=== PATIENT | female | born 1935 | race Caucasian/White ===

== ENCOUNTER → 2019-04-24 | Outpatient (CLI) | payer MEDICARE, BC ==
[~2019-04-24] MED LIST: ASPI81CH PO; Aciphex20 MG; B Complex #11 EACH; CALCAVITDA; CHOL10002; CYCL0.05OP; DABI150C PO; FLUSAL1005; GLUCHON PO; Hair, Skin & N1 EACH PO; LOSA50 PO; MATZIM LA180 MG PO; MOMENI; NITR.4SL; PROP120ER PO; TIOT18; TRAZ50 PO; VENL150ER PO; XARELTO20 MG; oxygen
[2019-04-28 17:07] LABS: DOPAMINE, URINE 76 ug/L (Undefined)
[2019-04-28 22:06] LABS: METANEPHRINE, UR 32 ug/L (Undefined)
[2019-04-29 11:07] LABS: 5-HIAA, URINE 1.9 mg/L (Undefined); CREATININE, URINE 46.7 mg/dL (Not Estab.)
== END | disposition home or self-care (01) ==
LOC: LAB 09:24 → LAB SHORT 09:24
PROVIDERS: Internal Medicine
DX: R23.2 Flushing (principal); R61 Generalized hyperhidrosis
CPT/HCPCS: 81050; 82384; 82570; 83497; 83835

== ENCOUNTER 2020-11-29 05:33 | Emergency (ER) | payer MEDICARE, BC ==
[~2020-11-29] VITALS: Ht 167.6 cm; Wt 77.1 kg
[2020-11-29 06:09] LABS: BASOPHILS ABSOLUTE AUTO 0.07 K/mm3 (0.00-0.23); BASOPHILS PERCENT AUTO 1 % (0-2); EOSINOPHILS ABSOLUTE AUTO 0.04 K/mm3 (0.00-0.68); EOSINOPHILS PERCENT AUTO 1 % (0-6); Hematocrit 37.3 % (33.0-51.0); Hemoglobin 12.5 g/dL (11.5-16.0); IMMATURE GRAN ABSOLUTE AUTO 0.02 K/mm3 (0.00-0.10); IMMATURE GRAN PERCENT AUTO 0 % (0-1); LYMPHOCYTES ABSOLUTE AUTO 1.45 K/mm3 (0.84-5.20); LYMPHOCYTES PERCENT AUTO 17 % (21-46); MONOCYTES ABSOLUTE AUTO 0.66 K/mm3 (0.16-1.47); MONOCYTES PERCENT AUTO 8 % (4-13); Mean Corpuscular HGB 30.8 pg (26.0-34.0); Mean Corpuscular HGB Conc 33.5 g/dL (31.5-36.5); Mean Corpuscular Volume 92 fL (80-100); Mean Platelet Volume 10.3 fL (9.1-12.4); NEUTROPHILS ABSOLUTE AUTO 6.22 K/mm3 (1.96-9.15); NEUTROPHILS PERCENT AUTO 74 % (41-73); Platelet Count 153 K/mm3 (150-400); RDW Coefficient Variation 12.3 % (11.7-14.2); RDW Standard Deviation 41.9 fL (35.1-46.3); Red Blood Cell Count 4.06 M/mm3 (3.80-5.20); White Blood Cell Count 8.46 K/mm3 (4.00-11.30)
[2020-11-29 06:28] LABS: Alanine Aminotransfer (ALT/SGP 18 U/L (12-78); Albumin, Blood 3.6 g/dL (3.4-5.0); Albumin/Globulin Ratio 1.1 (0.8-1.8); Alk Phos 64 U/L (50-136); Anion Gap 6 mmol/L (6-16); Aspartate Aminotrans (AST/SGOT 21 U/L (12-37); Bilirubin, Total 0.9 mg/dL (0.1-1.0); Blood Urea Nitrogen 13 mg/dL (8-24); Bun/Creatinine Ratio 17.4 (12.0-20.0); CO2, Blood 28 mmol/L (21-32); Calcium, Blood 8.7 mg/dL (8.5-10.1); Chloride, Blood 107 mmol/L (98-108); Creatinine, Blood 0.75 mg/dL (0.40-1.00); Globulin, Blood 3.4 g/dL (2.2-4.0); Glomerular Filtration Rate >60 (60-); Glucose, Blood 80 mg/dL (70-99); Potassium, Blood 3.7 mmol/L (3.5-5.5); Sodium, Blood 141 mmol/L (136-145)
[2020-11-29 07:06] LABS: CPK Creatine Kinase 398 U/L (26-193); Creatine Kinase MB 3.3 ng/mL (0.0-3.6); Creatine Kinase MB Index 0.8 (0.0-4.0)
== END 2020-11-29 08:52 | disposition home or self-care (01) ==
LOC: ER 05:33
PROVIDERS: Emergency Medicine
DX: S09.90XA Unspecified injury of head, initial encounter (principal); S70.02XA Contusion of left hip, initial encounter; Z79.899 Other long term (current) drug therapy; W18.30XA Fall on same level, unspecified, initial encounter
CPT/HCPCS: 36415; 51701; 70450; 73502; 80053; 82550; 82553; 85025; 93005; 93010; 99284-25; A9270

== ENCOUNTER 2021-10-19 09:39 | Day surgery (SDC) | payer MEDICARE, BC ==
[~2021-10-19] VITALS: Ht 167.6 cm; Wt 63.8 kg
[~2021-10-19 09:39] MED LIST changes: +Effexor Xr150 MG PO; +FLUT1DIS2 INH; +NASONEX17 GM; +PRAV20 PO; +RABE20 PO; +Restasis1 EACH BOTHEYES; +TIOT18 INH; +XARELTO20 MG PO
--- NOTE | 2021-10-19 11:03 | NUR ---
10/19/21 1103 Collette Seay FIRST ATTEMPT MISSED BY SHAYNE IN THE RIGHT HAND. SECOND ATTEMPT SUCCESFUL BY RN IN THE RIGHT HAND.
== END 2021-10-19 12:02 | disposition home or self-care (01) ==
LOC: ORSCSDS 09:39
PROVIDERS: Internal Medicine Gastroenterology
PROC: 0DBM8ZX Excision of Descending Colon, Via Natural or Artificial Opening Endoscopic, Diagnostic (ICD-10-PCS; principal; 2021-10-19 11:00)
DX: Z12.11 Encounter for screening for malignant neoplasm of colon (principal); Z86.010 Personal history of colon polyps; K57.30 Diverticulosis of large intestine without perforation or abscess without bleeding; K63.5 Polyp of colon; I10 Essential (primary) hypertension; F03.90 Unspecified dementia, unspecified severity, without behavioral disturbance, psychotic disturbance, mood disturbance, and anxiety; I48.0 Paroxysmal atrial fibrillation; J44.9 Chronic obstructive pulmonary disease, unspecified; K21.9 Gastro-esophageal reflux disease without esophagitis; Z87.891 Personal history of nicotine dependence; Z79.01 Long term (current) use of anticoagulants; Z79.899 Other long term (current) drug therapy
CPT/HCPCS: 88305; J2704; J7120

== ENCOUNTER 2024-11-30 13:07 | Observation (INO) | payer MEDICARE, BC ==
[~2024-11-30] VITALS: Ht 162.6 cm; Wt 59.4 kg
[~2024-11-30 13:07] MED LIST changes: +ALBU2.5V5 INH; +Acetaminophen325 M1 PO; +Acetaminophen650 M1; +ENOX40I SC; +LOSA25 PO; +OMEP20ER PO; +VENL75ER PO
[2024-11-30] MEDS ORDERED: Seroquel Xr50 MG PO (13:28)
[2024-11-30 13:51] LABS: BASOPHILS ABSOLUTE AUTO 0.08 K/mm3 (0.00-0.23); BASOPHILS PERCENT AUTO 1 % (0-2); EOSINOPHILS ABSOLUTE AUTO 0.02 K/mm3 (0.00-0.68); EOSINOPHILS PERCENT AUTO 0 % (0-6); Hematocrit 34.1 % (33.0-51.0); Hemoglobin 11.3 g/dL (11.5-16.0); IMMATURE GRAN ABSOLUTE AUTO 0.02 K/mm3 (0.00-0.10); IMMATURE GRAN PERCENT AUTO 0 % (0-1); LYMPHOCYTES ABSOLUTE AUTO 1.23 K/mm3 (0.84-5.20); LYMPHOCYTES PERCENT AUTO 15 % (21-46); MONOCYTES ABSOLUTE AUTO 0.69 K/mm3 (0.16-1.47); MONOCYTES PERCENT AUTO 8 % (4-13); Mean Corpuscular HGB 31.2 pg (26.0-34.0); Mean Corpuscular HGB Conc 33.1 g/dL (31.5-36.5); Mean Corpuscular Volume 94 fL (80-100); Mean Platelet Volume 10.9 fL (9.1-12.4); NEUTROPHILS ABSOLUTE AUTO 6.24 K/mm3 (1.96-9.15); NEUTROPHILS PERCENT AUTO 75 % (41-73); Platelet Count 167 K/mm3 (150-400); RDW Coefficient Variation 14.2 % (11.7-14.2); RDW Standard Deviation 49.3 fL (35.1-46.3); Red Blood Cell Count 3.62 M/mm3 (3.80-5.20); White Blood Cell Count 8.28 K/mm3 (4.00-11.30)
[2024-11-30] MEDS ORDERED: Diltiazem HCl 5 MG / ML 5ML Vial IV ONE ×2 (14:25→15:55)
[2024-11-30 14:27] LABS: Albumin, Blood 3.6 g/dL (3.4-5.0); Albumin/Globulin Ratio 1.1 (0.8-1.8); Bilirubin, Total 1.1 mg/dL (0.1-1.0); Bun/Creatinine Ratio 37.8 (12.0-20.0); Calcium, Blood 8.6 mg/dL (8.5-10.1); Creatinine, Blood 0.79 mg/dL (0.40-1.00); Globulin, Blood 3.3 g/dL (2.2-4.0); Potassium, Blood 3.5 mmol/L (3.5-5.5); Total Protein, Blood 6.9 g/dL (6.4-8.2)
[2024-11-30] MEDS ORDERED: dilTIAZem HCL 125 MG in Dextrose 5% 100 ML IV SCH (17:45)
[2024-11-30] MEDS ORDERED: Metoprolol Tartrate 1 MG/ML 5 ML VIAL IV ONE ×2 (17:55→18:00)
[2024-11-30] MEDS ORDERED: Ondansetron HCl 2 MG / ML 2ML Vial IV PRN (18:05)
[2024-11-30] MEDS ORDERED: Magnesium Sulf 2 GM/Water 50ML 50 ML IV STA (18:26)
[2024-11-30 18:53] VITALS: BP 123/79
[2024-11-30] MEDS ORDERED: Potassium Chloride 20 MEQ/15 ML UDC PO ONE (19:00)
--- NOTE | 2024-11-30 20:53 | NUR ---
UPON MEETING THE PATIENT SHE WAS PLEASANTLY CONFUSED AND COOPERATIVE WITH CARE WHEN EXPLAINED WHAT THE PURPOSE OF IT WAS. AROUND 1999 THIS RN WAS BRINGING HER MEDICATIONSAND THE PATIENT WAS TRYING TO GET OUT OF BED, AGITATED, STATING THAT SHE WAS REFUSING TO BE HAULED DOWN THE FREEWAY ON AN OPEN FLAT BED. SHE DID NOT BELIEVE THAT SHE IS IN THE HOSPITAL, NOR THAT SHE WAS SITTING ON A BED. PATIENT CALLING STAFF CROOKS AND LIARS AND SWEARING. PATIENT TRIED WALKING OUT OF THE ROOM TO LEAVE. BODY DIE MAKER NOTIFIED, NURSING DOG BARBER NOTIFIED. PATIENT SWEARING AT STAFF. TAKING OFF TELEMETRY AND REFUSING CARE. SHE ALSO THREW HER DIRTY ATTENDS IN THIS RN'S FACE.
[2024-11-30] MEDS ORDERED: QUEtiapine Fumarate 50 MG TAB PO SCH (21:00)
--- NOTE | 2024-11-30 23:45 | NUR ---
PATIENT CONTINUES TO REFUSE ALL MEDICAL INTERVENTION INCLUDING VITALS, TELE, AND MEDICATIONS. DR MISHRA AWARE.
[2024-12-01 02:59] VITALS: BP 116/80
[2024-12-01 04:00] LABS: BASOPHILS ABSOLUTE AUTO 0.07 K/mm3 (0.00-0.23); BASOPHILS PERCENT AUTO 1 % (0-2); EOSINOPHILS ABSOLUTE AUTO 0.01 K/mm3 (0.00-0.68); EOSINOPHILS PERCENT AUTO 0 % (0-6); Hematocrit 36.6 % (33.0-51.0); IMMATURE GRAN ABSOLUTE AUTO 0.03 K/mm3 (0.00-0.10); IMMATURE GRAN PERCENT AUTO 0 % (0-1); LYMPHOCYTES ABSOLUTE AUTO 1.07 K/mm3 (0.84-5.20); LYMPHOCYTES PERCENT AUTO 14 % (21-46); MONOCYTES ABSOLUTE AUTO 0.68 K/mm3 (0.16-1.47); MONOCYTES PERCENT AUTO 9 % (4-13); Mean Corpuscular HGB 31.3 pg (26.0-34.0); Mean Corpuscular HGB Conc 32.8 g/dL (31.5-36.5); Mean Corpuscular Volume 96 fL (80-100); Mean Platelet Volume 11.9 fL (9.1-12.4); NEUTROPHILS PERCENT AUTO 76 % (41-73); Platelet Count 174 K/mm3 (150-400); RDW Coefficient Variation 14.3 % (11.7-14.2); RDW Standard Deviation 49.7 fL (35.1-46.3); Red Blood Cell Count 3.83 M/mm3 (3.80-5.20); White Blood Cell Count 7.86 K/mm3 (4.00-11.30)
[2024-12-01 04:17] LABS: Albumin, Blood 3.5 g/dL (3.4-5.0); Bilirubin, Total 1.3 mg/dL (0.1-1.0); Bun/Creatinine Ratio 41.7 (12.0-20.0); Calcium, Blood 8.7 mg/dL (8.5-10.1); Creatinine, Blood 0.79 mg/dL (0.40-1.00); Globulin, Blood 3.6 g/dL (2.2-4.0); Magnesium, Blood 2.1 mg/dL (1.6-2.4); Potassium, Blood 3.5 mmol/L (3.5-5.5); Total Protein, Blood 7.1 g/dL (6.4-8.2)
[2024-12-01] MEDS ORDERED: Omeprazole 20 MG CapCR PO SCH (06:00)
--- NOTE | 2024-12-01 06:28 | NUR ---
SHIFT SUMMARY PATIENT CONTINUES TO BE CONFUSED, HOWEVER, AFTER SLEEPING FOR A WHILE SHE WOKE UP AND WAS PLEASANT AGAIN, ALLOWED FOR AM VITALS AND LABS, BUT STILL REFUSING MEDS AND TELE. WILL CONTINUE TO MONITOR.
[2024-12-01 07:40] VITALS: BP 123/82
--- NOTE | 2024-12-01 07:44 | NUR ---
NURSING PCU DAYSHIFT: Assumed care of pt at approx 0700. Alert, sitting in chair, engaging in conversation with sitter at bedside. Confused, able to recall some family history but unable to remember how many children she has had or year of . Mistrusting of participating in some aspects of assessments though is pleasant with general conversation. Skin fragile w/no noted breakdown, BLE dusky and cool though cap refill <3 sec. Ambulates w/SBA for safety. Tele place, afib w/HR 100-120, SBP 120's prior to a.m. meds, no c/o CP/pressure, no noted edema, pedal pulses faint. L/S cta t/o, O2 sat 100% on RA, denies dyspnea, no noted cough. Abd SNT, BT+, voiding w/o difficulty per rpt. PIV x1, s/l. No s/s of acute distress this a.m. Pt remains calm w/sitter in room. Will attempt PO meds after PMD rounds as pt will not tolerate diltiazem infusion for rate control at this time. Cont to monitor for changes.
[2024-12-01] MEDS ORDERED: Metoprolol Tartrate 5 ML IV ONE (08:33)
[2024-12-01] MEDS ORDERED: Metoprolol Tartrate 1 MG/ML 5 ML VIAL IV STA (08:39)
[2024-12-01] MEDS ORDERED: Aspirin 81 MG Chew PO SCH (09:00)
[2024-12-01] MEDS ORDERED: Metoprolol Tartrate 1 MG/ML 5 ML VIAL IV PRN (09:00)
[2024-12-01] MEDS ORDERED: Pravastatin Sodium 20 MG Tab PO SCH (09:00)
[2024-12-01] MEDS ORDERED: Enoxaparin 40 MG/0.4 ML SYR SC SCH (09:00)
[2024-12-01] MEDS ORDERED: Metoprolol Tartrate 25 MG Tab PO SCH ×2 (09:00)
--- NOTE | 2024-12-01 10:43 | NUR ---
PT DOES NOT HAVE A POLST ON FILE ([facility]). SPOKE WITH [employer] THIS MORN[facility]. [facility] REPORTS PT IS A FULL CODE. CANCELED DUPLICATE PALLIATIVE CARE ORDERS.
[2024-12-01 11:49] VITALS: BP 93/68
[2024-12-01 13:50] VITALS: BP 107/73
[2024-12-01] MEDS ORDERED: Furosemide 20 MG Tab PO SCH (15:00)
--- NOTE | 2024-12-01 15:18 | NUR ---
SPOLE WITH DAUGHTER ADAMA ON THE PHONE. WE DISCUSSED CODE STATUS. REVIEWED OPTION ON POLST SHE CHOSE DNR AND COMFORT MEASURES. WE DISCUSSED DISCHARGE PLAN. WE DISCUSSED HOSPICE AND THEY WOULD PROVIDE. SHE IS AGREEABLE TO THIS PLAN. UPDATED PROVIDER. CODE STATUS CHANGED DISCUSSED WITH BEDSIDE RN AND CHANGE MANAGEMENT FACILITATOR.
[2024-12-01] MEDS ORDERED: Losartan Potassium 50 MG Tab PO SCH (16:45)
[2024-12-01] MEDS ORDERED: Empagliflozin 10 MG TAB PO SCH (17:00)
--- NOTE | 2024-12-01 17:33 | NUR ---
NURSING PCU DAYSHIFT SUMMARY: This a.m. while pt was sitting on toilet, HR increased to 140-170's, pt became pale, dizzy, and nauseous. 5 mg IV metoprolol administered as per d/o, converted to NSR w/HR 60-70s, symptoms improved. ECHO results received and reviewed, discussed w/PMD, new d/o received. Physician notified that as of 1744, pt has had no urine output. PO lasix administered at 1617, have not been able to complete bladder scan. Pt has had significant fluctuations in behavior t/o shift. At times, pt is cooperative and agreeable w/care though can quickly experience changes in behavior including anger, paranoia, and visual hallucinations. During those episodes, pt was not able to be directed at which time staff would switch out and pt would settle after period of time. When pt insisted on leaving room, staff took pt for walks t/o unit in w/c, some of which pt enjoyed, other times pt yelled out and cussed asked for public relations officer to be called. Care management and palliative care have worked w/daughter and facility to discuss care and discharge plan. Decision made to discharge pt home on hospice 12/02, daughter to provide transport at 1100, hospice intake scheduled for 1200. Pt sleeping for the first time this shift. Appears to be resting comfortably. Sitter remains at bedside for safety. Cont to monitor until rpt is given to NOC RN.
[2024-12-01] MEDS ORDERED: Rivaroxaban 10 MG Tab PO SCH (18:00)
--- NOTE | 2024-12-01 18:07 | NUR ---
NURSING PCU DAYSHIFT SUMMARY: This a.m. while pt was sitting on toilet, HR increased to 140-170's, pt became pale, dizzy, and nauseous. 5 mg IV metoprolol administered as per d/o, converted to NSR w/HR 60-70s, symptoms improved. ECHO results received and reviewed, discussed w/PMD, new d/o received. Physician notified that as of 1744, pt has had no urine output. PO lasix administered at 1617, have not been able to complete bladder scan. Pt has had significant fluctuations in behavior t/o shift. At times, pt is cooperative and agreeable w/care though can quickly experience changes in behavior including anger, paranoia, and visual hallucinations. During those episodes, pt was not able to be directed at which time staff would switch out and pt would settle after period of time. When pt insisted on leaving room, staff took pt for walks t/o unit in w/c, some of which pt enjoyed, other times pt yelled out and cussed asked for deli worker to be called. Care management and palliative care have worked w/daughter and facility to discuss care and discharge plan. Decision made to discharge pt home on hospice 12/02, daughter to provide transport at 1100, hospice intake scheduled for 1200. Pt sleeping for the first time this shift. Appears to be resting comfortably. Sitter remains at bedside for safety. Cont to monitor until rpt is given to NOC RN.
[2024-12-01 19:35] VITALS: BP 138/81
[2024-12-02 02:51] VITALS: BP 112/90
--- NOTE | 2024-12-02 06:28 | NUR ---
SHIFT SUMMARY PATIENT ALERT AND ORIENTED TO SELF AND FAMILY. HAD NO COMPLAINTS OF PAIN. OCCASIONALLY WOKE UP SHORT OF BREATH AND SAT UP TO RECOVER, SPO2 >90% DURING THESE EPISODES ON ROOM AIR. MIDNIGHT VITAL SIGNS NOT OBTAINED FOR PATIENT'S COMFORT AND TO NOT AGITATE THE PATIENT SHE WAS SLEEPING. EVENING AND MORNING VITALS STABLE. WILL CONTINUE TO MONITOR. CALL LIGHT WITHIN REACH. SITTER AT BEDSIDE.
[2024-12-02 06:49] LABS: Bun/Creatinine Ratio 39.7 (12.0-20.0); Calcium, Blood 8.6 mg/dL (8.5-10.1); Creatinine, Blood 0.93 mg/dL (0.40-1.00); Potassium, Blood 3.7 mmol/L (3.5-5.5)
[2024-12-02 08:54] VITALS: BP 125/101
[2024-12-02] MEDS ORDERED: Metoprolol Succinate 25 MG TABCR PO SCH (09:00)
--- NOTE | 2024-12-02 09:57 | NUR ---
AM ASSESSMENT: Pt sitting up at edge of bed eating breakfast with SOLICITING FREIGHT AGENT at bedside. Pt is confused to place, situation, time. Oriented only to self. Happy and cooperative most of the time. Follows most instructions with some convincing. LS clear. HR irregular. BT positive. Pulses palp. Plan to discharge today with hospice. Will continue to monitor. Bed alarm on, call light in reach.
[2024-12-02] MEDS ORDERED: LOSA25 PO (10:01)
[2024-12-02] MEDS ORDERED: FURO20 PO (10:01)
[2024-12-02] MEDS ORDERED: JARDIANCE10 MG PO (10:01)
[2024-12-02] MEDS ORDERED: XARELTO20 MG PO (10:02)
[2024-12-02] MEDS ORDERED: METO25ER PO (10:02)
[2024-12-02 11:10] VITALS: BP 135/117
--- NOTE | 2024-12-02 11:11 | NUR ---
DISCHARGE: Pt and daughter were given dishcarge instructions. Verbalized understanding, denies questions. Left via wc. Stable at time of dishcarge with hospice.
[2024-12-02] MEDS ORDERED: Losartan Potassium 50 MG Tab PO SCH (21:00)
== END 2024-12-02 11:15 | disposition hospice, home (50) ==
LOC: ER 13:07 → PCU 13:08
PROVIDERS: Emergency Medicine; Internal Medicine; Nurse Practitioner Acute Care; ADMIT Internal Medicine
DX: I48.19 Other persistent atrial fibrillation (principal); I11.0 Hypertensive heart disease with heart failure; I50.21 Acute systolic (congestive) heart failure; F03.90 Unspecified dementia, unspecified severity, without behavioral disturbance, psychotic disturbance, mood disturbance, and anxiety; R74.01 Elevation of levels of liver transaminase levels; E78.5 Hyperlipidemia, unspecified; K21.9 Gastro-esophageal reflux disease without esophagitis; Z51.5 Encounter for palliative care; Z88.2 Allergy status to sulfonamides; Z79.82 Long term (current) use of aspirin; Z79.899 Other long term (current) drug therapy
CPT/HCPCS: 36415; 71046; 80048; 80053; 83735; 83880; 84443; 84484; 85025; 93005; 93010; 96372; 96374; 96375; 96376; 99285-25; A9270; C8929; G0378; J1650; Q9957

== ENCOUNTER 2024-12-26 07:54 | Emergency (ER) | payer MEDICARE, BC ==
[~2024-12-26] VITALS: Ht 162.6 cm; Wt 52.2 kg
[~2024-12-26 07:54] MED LIST changes: +FURO20 PO; +JARDIANCE10 MG PO; +METO25ER PO; +Seroquel Xr50 MG PO
[2024-12-26 10:45] VITALS: BP 128/89
== END 2024-12-26 11:02 | disposition home or self-care (01) ==
LOC: ER 07:54
DX: S70.01XA Contusion of right hip, initial encounter (principal); K21.9 Gastro-esophageal reflux disease without esophagitis; I10 Essential (primary) hypertension; W18.30XA Fall on same level, unspecified, initial encounter; Z88.2 Allergy status to sulfonamides; Z88.8 Allergy status to other drugs, medicaments and biological substances; Z91.09 Other allergy status, other than to drugs and biological substances; Z79.82 Long term (current) use of aspirin; Z79.899 Other long term (current) drug therapy; Z79.02 Long term (current) use of antithrombotics/antiplatelets; Z87.891 Personal history of nicotine dependence
CPT/HCPCS: 73502; 99284-25